=== PATIENT | female | born 1970 | race Caucasian/White ===

== ENCOUNTER 2019-11-22 08:42 | Inpatient (IN) ==
--- NOTE | 2019-11-06 16:27 | PAT Medication Instructions ---
Medication Instructions Date of Service November 06, 2019 Home Medications baclofen 10 mg PO BID buspirone 30 mg PO BID clonazepam [Klonopin] 0.5 mg PO UD desvenlafaxine succinate [Pristiq] 100 mg PO QPM diclofenac sodium 75 mg PO BID ergocalciferol (vitamin D2) 50,000 unit PO WK gabapentin 300 mg PO TID lactobacillus combination no.4 [Probiotic] 3,000 mmu cells PO DAILY metoprolol succinate 25 mg PO QPM multivitamin 1 tab PO QPM omega 5-syx-god-fish oil [Fish Oil] 1 cap PO DAILY pantoprazole 40 mg PO QAM turmeric 400 mg PO DAILY ASK your surgeon for instructions diclofenac sodium 75 mg PO BID STOP taking 2 weeks before surgery omega 4-jkj-ifg-fish oil [Fish Oil] 1 cap PO DAILY turmeric 400 mg PO DAILY DO NOT take the morning of surgery baclofen 10 mg PO BID ergocalciferol (vitamin D2) 50,000 unit PO WK lactobacillus combination no.4 [Probiotic] 3,000 mmu cells PO DAILY Take morning of surgery With a small sip of water, OTHERWISE NOTHING TO EAT OR DRINK AFTER MIDNIGHT: buspirone 30 mg PO BID clonazepam [Klonopin] 0.5 mg PO UD (if needed) desvenlafaxine succinate [Pristiq] 100 mg PO QPM gabapentin 300 mg PO TID pantoprazole 40 mg PO QAM Take evening before surgery baclofen 10 mg PO BID buspirone 30 mg PO BID clonazepam [Klonopin] 0.5 mg PO UD desvenlafaxine succinate [Pristiq] 100 mg PO QPM gabapentin 300 mg PO TID metoprolol succinate 25 mg PO QPM multivitamin 1 tab PO QPM Other Notes If you have any questions please call us at [phone] or [phone] or [phone] or [phone]
--- NOTE | 2019-11-08 10:43 | Anesthesiology Consultation ---
Date of Service November 08, 2019 Assessment & Plan (1) Encounter for pre-operative examination: CHECK TEST AM DOS Chart Review Chart Review: Acceptable Risk for Surgery and Patient seen in Pre Admission Testing Teaching & Discussion Instructed NPO after midnight before surgery, except medications with 15 cc of water. Medication instructions provided according to the PAT guidelines. History Surgery Operation Date: 11/22/19 07:45 Proposed Procedures p L3-L5 Decomperssion and Fusion, Spinal Cord Monitoring - Matthew Nava DO Height/Weight Height: 5 ft 6.5 in Weight: 87.6 kg Allergies Allergy/AdvReac Type Severity Reaction Status Date / Time morphine AdvReac VOMITING Verified 10/31/19 09:00 Medications Home Medications Medication Instructions Recorded Confirmed Last Taken baclofen 10 mg PO BID 10/31/19 10/31/19 Unknown buspirone 30 mg PO BID 10/31/19 10/31/19 Unknown clonazepam [Klonopin] 0.5 mg PO UD 10/31/19 10/31/19 Unknown desvenlafaxine succinate [Pristiq] 100 mg PO QPM 10/31/19 10/31/19 Unknown diclofenac sodium 75 mg PO BID 10/31/19 10/31/19 Unknown ergocalciferol (vitamin D2) 50,000 unit PO WK 10/31/19 10/31/19 Unknown [Vitamin D2] gabapentin 300 mg PO TID 10/31/19 10/31/19 Unknown lactobacillus combination no.4 3,000 mmu cells PO DAILY 10/31/19 10/31/19 Unknown [Probiotic] metoprolol succinate 25 mg PO QPM 10/31/19 10/31/19 Unknown multivitamin 1 tab PO QPM 10/31/19 10/31/19 Unknown omega 7-hsa-rzw-fish oil [Fish Oil] 1 cap PO DAILY 10/31/19 10/31/19 Unknown pantoprazole 40 mg PO QAM 10/31/19 10/31/19 Unknown turmeric 400 mg PO DAILY 10/31/19 10/31/19 Unknown Past Medical History Medical History Anxiety Degenerative disc disease Depression GERD (gastroesophageal reflux disease) Herniated intervertebral disc History of endometriosis Hypertension Osteoarthritis Spinal stenosis Exercise / Class Metabolic Activity II 4-5 Yardwork/Stairs/Walk up hill (Denies CP or SOB with 1 FOS) Past Surgical History Surgical History History of arthroscopy of right shoulder History of delivery History of cholecystectomy History of endometrial ablation History of tonsillectomy Hx of LASIK Past Anesthesia History No Hx of Anesthesia Complications and No Family Hx of Anesthesia Complications History of PONV No Hx of PONV and No Hx of Motion Sickness Social History Smoking Status: Former smoker tobacco type: cigarettes Do You Dip or Chew Tobacco: No Smoking End Date: QUIT 08/2019 Hx Alcohol Use: Yes alcohol intake frequency: holidays/special occasions only Hx Substance Use: No substance use type: does not use Review of Systems Pt denies any recent chest pain, shortness of breath, palpitations, cough, fever or URI. Physical Exam Vital Signs BP: 110/76 P: 67bpm SPO2: 97% RA T: 98.4 F R: 12 ENMT Mouth: + dental restorations (few caps on molars); no chipped teeth and no loose teeth Thyromental Distance: > or= 3.5 Finger Breadths (3.5) Mallampati Class: I Neck normal visual inspection; neck extension not limited Respiratory normal respiratory effort Auscultation: lungs clear to auscultation bilaterally Cardiovascular Rate/Rhythm: regular rate and regular rhythm Heart Sounds: no murmur Testing Laboratory Results 11/08/19 10:49 11/08/19 10:49 PT 10.0 Seconds (9.0-12.0) 11/08/19 10:49 INR 1.0 (0.9-1.1) 11/08/19 10:49 APTT 28.5 Seconds (21.0-31.0) 11/08/19 10:49 Urine Color Yellow 11/08/19 10:49 Urine Appearance Clear (Clear) 11/08/19 10:49 Urine pH 7.5 (4.5-7.5) 11/08/19 10:49 Ur Specific [place] 1.010 (1.000-1.030) 11/08/19 10:49 Urine Protein Negative (Negative) 11/08/19 10:49 Urine Glucose (UA) Negative (Negative) 11/08/19 10:49 Urine Ketones Negative (Negative) 11/08/19 10:49 Urine Nitrite Negative (Negative) 11/08/19 10:49 Ur Leukocyte Esterase Negative (Negative) 11/08/19 10:49 Blood Type O Positive 11/08/19 10:49 Antibody Screen NEGATIVE 11/08/19 10:49 Electrocardiogram Date: 02/26/19 Findings: + NSR @ (64bpm) Low voltage QRS, consider pulmonary disease, pericardial effusion, or normal variant. Cannot rule out anterior infarct, age undetermined. *Subsequent stress test as described below was done because of this abnormal EKG Stress Test Date: 03/15/19 Resting EF: 60-65% The stress echo is negative for inducible ischemia. No arrhythmias. Normal heart rate and BP response to dobutamine infusion. At rest, normal LV chamber size and wall thickness. Normal LV systolic function without regional wall motion abnormalities. Normal diastolic function. No significant valvular pathology.
[2019-11-08 12:19] LABS: BUN Creatinine Ratio 16.4 (10-20); Basophils # (auto) 0.04 K/uL (0-0.2); Basophils % (auto) 0.6 %; Calcium 9.7 mg/dl (8.5-10.1); Creatinine Clr Calc Pharmacy 85.1 ml/min; Eosinophils # (auto) 0.08 K/uL (0-0.5); Eosinophils % (auto) 1.3 %; Est GFR (African American) 86.5; Est GFR (Non-African American) 74.6; Hematocrit (blood only) 38.2 % (37-47); Hemoglobin 12.8 g/dL (12.0-16.0); Lymphocytes # (auto) 1.92 K/uL (1.2-3.4); Lymphocytes % (auto) 30.8 %; Mean Corpuscular Hemoglobin 30.9 pg (25-34); Mean Corpuscular Hgb Conc 33.5 g/dL (32-36); Mean Corpuscular Volume 92.3 fL (80-100); Mean Platelet Volume 9.8 fL (7.4-10.4); Monocytes # (auto) 0.37 K/uL (0.11-0.59); Monocytes % (auto) 5.9 %; Neutrophils # (auto) 3.83 K/uL (1.4-6.5); Neutrophils % (auto) 61.4 %; Platelet Count 263 K/uL (130-400); Potassium 4.5 mmol/L (3.5-5.1); RDW Coefficient of Variation 12.8 % (11.5-14.5); RDW Standard Deviation 43.3 fL (36.4-46.3); Red Blood Count 4.14 M/uL (4.2-5.4); White Blood Count 6.24 K/uL (4.8-10.8)
[2019-11-08 12:29] LABS: Appearance Urine Clear (Clear); Bilirubin Urine Negative (Negative); Blood Urine Negative (Negative); Color Urine Yellow; Glucose Urine UA Negative (Negative); Ketones Urine Negative (Negative); Leukocyte Esterase Urine Negative (Negative); Nitrite Urine Negative (Negative); Protein Urine Negative (Negative); Urobilinogen Urine Negative (Negative); pH Urine 7.5 (4.5-7.5)
[2019-11-08 12:36] LABS: Partial Thromboplastin Ratio 1.1; Partial Thromboplastin Time 28.5 Seconds (21.0-31.0)
--- NOTE | 2019-11-08 14:24 | XRay Report ---
XR chest Pre-admission PA/Lat CLINICAL HISTORY: pat preoperative COMPARISON STUDY: No previous studies for comparison. FINDINGS: The bones soft tissues and hemidiaphragms are normal. The cardiomediastinal silhouette is n ormal. The lungs are clear. The pulmonary vasculature is normal. IMPRESSION: Negative chest. The above report was generated using voice recognition software. It may contain grammatical, syntax or spelling errors. Electronically signed by: Jason Williamson M.D. 11/08/2019 2:22 PM
[~2019-11-22 08:42] MED LIST: ACETAMINOPHEN 500 MG TAB PO SCH; CEFAZOLIN 2000MG 2,000 MG/15 ML SYR IV SCH; CeleBREX 200 MG CAP PO SCH; GABAPENTIN 900 MG DOSE PO SCH; HYDROmorphone INJ 2 MG/ML SYR/VIAL ONE; LR 15ML/HR IV SCH; MIDAZOLAM HCL 1 MG/ML 2ML VIAL ONE; fentaNYL citrate 100 MCG/2 ML VIAL ONE
[2019-11-22] MEDS ORDERED: PHENYLEPHRINE 100MCG/ML 5ML SYR IV PRN (09:19)
[2019-11-22] MEDS ORDERED: ePHEDrine sulfate 50 MG/ML AMP IV PRN (09:19)
[2019-11-22] MEDS ORDERED: MEPERIDINE HCL 25 MG/ML CARP IV PRN (09:19)
[2019-11-22] MEDS ORDERED: ATROPINE SULFATE 0.1 MG/ML 10ML SYR IV PRN (09:19)
[2019-11-22] MEDS ORDERED: ONDANSETRON INJ 2 MG/ML 2 ML VIAL IV PRN ×2 (09:19→14:28)
[2019-11-22] MEDS ORDERED: LABETALOL HCL IV 5 MG/ML 20ML IV PRN (09:19)
--- NOTE | 2019-11-22 09:39 | History & Physical Bridge Note ---
Date of Service November 22, 2019 History & Physical Bridge Note I have examined the patient, reviewed the History & Physical and in the interval since the performance of the History & Physical I have noted the following changes of clinical significance: no changes noted
--- NOTE | 2019-11-22 09:40 | History & Physical Report ---
Date of Service November 22, 2019 Assessment & Plan (1) Spinal stenosis of lumbar region with radiculopathy: Decompression fusion L3-L5 Present on Admission?: Yes History of Present Illness Chief Complaint: Back and leg pain Primary Care Provider: Mally Yadav MD This is a 49-year-old female presents with chronic persistent back and leg pain. After failing extensive course of nonoperative care she is here for surgical invention. Allergies Allergy/AdvReac Type Severity Reaction Status Date / Time morphine AdvReac VOMITING Verified 11/22/19 09:07 Home Medications Home Medications Medication Instructions Recorded Confirmed Type baclofen 10 mg PO BID 10/31/19 11/22/19 History buspirone 30 mg PO BID 10/31/19 11/22/19 History clonazepam [Klonopin] 0.5 mg PO UD 10/31/19 11/22/19 History desvenlafaxine succinate [Pristiq] 100 mg PO QPM 10/31/19 11/22/19 History diclofenac sodium 75 mg PO BID 10/31/19 11/22/19 History ergocalciferol (vitamin D2) 50,000 unit PO WK 10/31/19 11/22/19 History [Vitamin D2] gabapentin 300 mg PO TID 10/31/19 11/22/19 History lactobacillus combination no.4 3,000 mmu cells PO DAILY 10/31/19 11/22/19 History [Probiotic] metoprolol succinate 25 mg PO QPM 10/31/19 11/22/19 History multivitamin 1 tab PO QPM 10/31/19 11/22/19 History omega 9-xbl-ufj-fish oil [Fish Oil] 1 cap PO DAILY 10/31/19 11/22/19 History pantoprazole 40 mg PO QAM 10/31/19 11/22/19 History turmeric 400 mg PO DAILY 10/31/19 11/22/19 History Past Med/Surg History Medical History Anxiety Degenerative disc disease Depression GERD (gastroesophageal reflux disease) Herniated intervertebral disc History of endometriosis Hypertension Osteoarthritis Spinal stenosis Surgical History History of arthroscopy of right shoulder History of delivery History of cholecystectomy History of endometrial ablation History of tonsillectomy Hx of LASIK Social History Preferred Language: Italian Communication Ability: Effective Urban And Regional Planner Required: No Beliefs That Will Affect Care: None Current Living Situation: Significant Other Other Information That Helps Us Care for You: No Feels Safe at Home: Yes Safety Concerns: Feels Safe At This Time Smoking Status: Former smoker Tobacco Type: cigarettes ; Do You Dip or Chew Tobacco: No ; Smoking End Date: QUIT 08/2019 ; Second Hand Exposure: No ; Tobacco Cessation Education Requested by Patient: No Hx Alcohol Use: Yes Hx Substance Use: No Physical Exam Physical Exam: Patient is alert and oriented neurologically intact. Results & Data Vital Signs (Past 12 Hours) Vital Signs Temp Pulse Resp BP Pulse Ox 11/22/19 09:01 36.9 C 68 16 125/97 100
[2019-11-22] MEDS ORDERED: SCOPOLAMINE 1.5 MG TDSY ONE (09:47)
[2019-11-22] MEDS ORDERED: BACITRACIN INJ 50,000 UNIT VIAL ONE (10:09)
[2019-11-22] MEDS ORDERED: BUPIVACAINE/EPINEPHRINE 0.25% 1:200,000 30 ML VIAL ONE (10:10)
[2019-11-22] MEDS ORDERED: SCOPOLAMINE 1.5 MG TDSY TD ONE (10:13)
[2019-11-22] MEDS ORDERED: HYDROmorphone INJ 2 MG/ML SYR/VIAL ONE (10:18)
[2019-11-22] MEDS ORDERED: fentaNYL citrate 100 MCG/2 ML VIAL ONE ×4 (10:51→12:30)
[2019-11-22] MEDS ORDERED: DEXAMETHASONE SOD INJ 4 MG/ML VIAL ONE (10:58)
[2019-11-22] MEDS ORDERED: LARYING-O-JET KIT (LTA) ONE (10:58)
[2019-11-22] MEDS ORDERED: LIDOCAINE HCL 2% 2 ML VIAL/AMP(20MG/ML) INFIL ONE (10:58)
[2019-11-22] MEDS ORDERED: ROCURONIUM BROMIDE 10 MG/ML 5 ML VIAL ONE (10:58)
[2019-11-22] MEDS ORDERED: PROPOFOL IV EMULSION 10 MG/ML 20 ML VIAL IV ONE (10:58)
[2019-11-22] MEDS ORDERED: ePHEDrine sulfate 50 MG/ML SYR ONE ×2 (10:58→12:30)
[2019-11-22] MEDS ORDERED: GLYCOPYRROLATE 0.2 MG/ML VIAL ONE (10:58)
[2019-11-22] MEDS ORDERED: NEOSTIGMINE METHYLSULFATE 1 MG/ML 10ML VIAL ONE (10:58)
[2019-11-22] MEDS ORDERED: ONDANSETRON INJ 2 MG/ML 2 ML VIAL ONE (10:58)
[2019-11-22] MEDS ORDERED: ePHEDrine sulfate 50 MG/ML AMP ONE (12:30)
[2019-11-22] MEDS ORDERED: KETOROLAC 30 MG/ML VIAL ONE (12:30)
--- NOTE | 2019-11-22 12:32 | Operative Report ---
Post Operative Report Pre & Post Diagnosis Operation Date: 11/22/19 10:35 Pre-Op Diagnosis: Lumbar spinal stenosis with radiculopathy Post-Op Diagnosis: Same I identified the patient and participated in the time-out.: Yes Procedure Operation Date: 11/22/19 10:35 Actual Procedures #1 lumbar decompression with bilateral medial facetectomies foraminotomies L3-4 L4-5. #2 posterior spinal fusion L3-4 L4-5. #3 placement posterior instrumentation L3-4 L4-5 per #4 interbody fusion L3-4 L4-5 per #5 placed a peek cage 12 x 22 mm at L3-4 and L4-5. #6 placement of locally harvested morselized autograft in the posterior lateral gutters. #7 placement infuse collagen sponge combined master graft in the posterior lateral gutters and ostial amp and interbody space. Surgeon Matthew Nava, Supervisor Beater Room Chuck Villarreal Estimated Blood Loss 175 Findings Consistent with Post-Op Diagnosis Specimens None Indications This is a 49-year-old female the presents above-mentioned diagnosis after failing extensive course of nonoperative care is here for surgical invention. Description of Procedure Patient was met with identified informed consent obtained. Patient was then taken to the operative suite underwent intubation placed in a prone position the Boris table on top of the Alcon frame. All bony prominences well-padded eyes inspected to ensure no external pressure placed upon the peer at this point the lumbar spine is prepped and draped in a sterile fashion. Sharp dissection with the assistance of Bovie cautery was performed down to and exposing the lamina transverse processes of L3 L4-5 bilaterally. From caudal cephalad fashion complete laminectomy of L4 and L3 is performed including bilateral medial facetectomies and foraminotomies addressing severe stenosis as well as a large herniated disc in the right neural foramen. After complete decompression pedicle screws were placed in L3-L4-L5 bilaterally with assistance of fluoroscopy the process purinma placed. By way of a transforaminal portion right complete discectomy of L5-S1 is performed endplates curetted to subcortical bleeding bone and a 12 x 22 mm peek cage filled with osteo-amp bone graft tapped into position. Then proceeded to L3-[address] of a transforaminal approach in the right complete discectomy was performed endplates curetted to subcortical bleeding bone and a 12 x 22 mm peek cage filled with osteo-bone graft tapped in position. The rods were then compressed locked into final pos ition bilaterally. The transverse processes of L3-L4-L5 bur to subcortical bleeding bone. Infuse collagen sponge master graft and local autograft was then placed in the posterior gutters. 15 round CATALINA drain inserted. The incision was then closed with 1 Vicryl in the fascia 2-0 Vicryl subcutaneously and 4 Monocryl for final skin closure. Steri-Strip sterile dressings placed. Patient will continue to PACU stable condition. Please note Chuck Villarreal present at the entire procedure involved the patient positioning complex portions of the surgery and final skin closure. Lastly spinal cord monitoring was utilized that the procedure no changes noted. I attest to the content of the Intraoperative Record and any orders documented therein. Any exceptions are noted below.
[2019-11-22] MEDS ORDERED: FLOSEAL HEMOSTATIC MATRIX 10ML TOP ONE (12:39)
[2019-11-22] MEDS ORDERED: ESMOLOL HCL INJ 10 MG/ML 10ML VIAL IV ONE (12:42)
[2019-11-22] MEDS: fentaNYL citrate 100 MCG/2 ML VIAL IV PRN ×4 (13:05→13:20)
--- NOTE | 2019-11-22 13:07 | Fluoroscopy Report ---
INTRAOPERATIVE RADIOGRAPHS CLINICAL HISTORY: L3-L5 spinal fusion. Fluoroscopy time: 18 seconds. FINDINGS: 2 spot fluoroscopic views of the lumbar spine are presented. There has been discectomy at L 3-L4 and L4-L5 laminectomy and posterior fusion from L3 -L5. Interpedicular screws are present at all levels. Orthopedic hardware appears intact. IMPRESSION: Intraoperative images from L3-L5 spinal fusion as above. Electronically signed by: Jesus Alberto Maxwell M.D. 11/22/2019 1:06 PM
[2019-11-22] MEDS: HYDROmorphone INJ 1 MG/ML SYRINGE IV PRN ×5 (13:25→13:46)
[2019-11-22] MEDS ORDERED: METOPROLOL TARTRATE 1 MG/ML VIAL IV STA (13:40)
[2019-11-22] MEDS ORDERED: METOPROLOL TARTRATE 1 MG/ML VIAL IV ONE (13:42)
--- NOTE | 2019-11-22 13:54 | Anesthesiology Progress Note ---
Date of Service November 22, 2019 Anesthesia Post Procedure Vital Signs Vital Signs: Temp Pulse Pulse Pulse Resp BP BP 11/22/19 13:45 100 H 147/76 H 11/22/19 13:35 98 H 16 142/79 H 11/22/19 13:25 97 H 14 144/80 H 11/22/19 13:15 95 H 12 149/78 H 11/22/19 13:05 95 H 12 149/87 H 11/22/19 12:59 36.6 C 83 14 115/71 11/22/19 09:01 36.9 C 68 16 125/97 Pulse Ox 11/22/19 13:45 11/22/19 13:35 99 11/22/19 13:25 98 11/22/19 13:15 100 11/22/19 13:05 98 11/22/19 12:59 99 11/22/19 09:01 100 Pain Intensity Back: Pain Intensity: 3 Transfer of Care Handoff Completed per policy Notes Mental Status: alert / awake / arousable Patient Amnestic to Procedure: Yes Nausea / Vomiting: adequately controlled Pain: adequately controlled Airway Patency, RR, SpO2: stable & adequate BP & HR: stable & adequate Hydration State: stable & adequate Anesthetic Complications: no major complications apparent and Pt Satisfied with anesthetic care
[2019-11-22] MEDS ORDERED: FAMOTIDINE 20 MG TAB PO PRN (14:28)
[2019-11-22] MEDS ORDERED: SOD PHOSPHATE/SOD BIPHOSPHATE ENEMA 132 ML BTL PR PRN (14:28)
[2019-11-22] MEDS ORDERED: ONDANSETRON 4 MG OD TAB PO PRN (14:28)
[2019-11-22] MEDS ORDERED: DO NOT ADMINISTER PNEUMOCOCCAL VACCINE PRN (14:28)
[2019-11-22] MEDS ORDERED: HYDROmorphone INJ 1 MG/ML SYRINGE IV PRN (14:28)
[2019-11-22] MEDS ORDERED: DO NOT ADMINISTER FLU VACCINE PRN (14:28)
[2019-11-22] MEDS ORDERED: PROMETHAZINE HCL 12.5 MG in SODIUM CHLORIDE 0.9% 50 ML IV PRN (14:28)
[2019-11-22] MEDS ORDERED: bisacodyL 10 MG SUPP PR PRN (14:28)
[2019-11-22] MEDS ORDERED: LORazepam 0.5 MG TAB PO PRN (14:28)
[2019-11-22] MEDS ORDERED: ALUMINUM/MAGNESIUM SUSP 30 ML UDC PO PRN (14:28)
[2019-11-22] MEDS ORDERED: LORazepam 0.5 MG/1 ML VIAL IV PRN (14:28)
[2019-11-22] MEDS ORDERED: METOCLOPRAMIDE HCL INJ 5 MG/ML 2 ML VIAL IV PRN (14:28)
[2019-11-22] MEDS ORDERED: ACETAMINOPHEN 1,000 MG/100 ML VIAL IV PRN (14:28)
[2019-11-22] MEDS ORDERED: NALOXONE HCL 0.4 MG/1 ML VIAL/CARP IV PRN (14:28)
[2019-11-22] MEDS: KETOROLAC 30 MG/ML VIAL IV SCH ×2 (14:56→19:46)
[2019-11-22] MEDS: LACTATED RINGER'S 1,000 ML IV SCH ×2 (14:57→21:30)
[2019-11-22] MEDS: HYDROmorphone INJ 0.5 MG/0.5 ML SYR IV PRN (15:35)
[2019-11-22] MEDS: GABAPENTIN 300 MG CAP PO SCH ×2 (15:40→20:59)
[2019-11-22] MEDS ORDERED: CHECK SCOPOLAMINE PATCH PLACEMENT SCH (16:00)
[2019-11-22] MEDS: OXYCODONE HCL IR 5 MG TAB (IMMEDIATE RELEASE) PO PRN ×2 (17:45→21:30)
[2019-11-22] MEDS: CEFAZOLIN 2000MG 2,000 MG/15 ML SYR IV SCH (19:13)
[2019-11-22] MEDS: MULTIVITAMIN TAB PO SCH (20:58)
[2019-11-22] MEDS: BACLOFEN 10 MG TAB PO SCH (20:58)
[2019-11-22] MEDS: clonazePAM 0.5 MG TAB PO SCH (20:58)
[2019-11-22] MEDS: BusPIRone 15 MG TAB PO SCH (20:58)
[2019-11-22] MEDS: DOCUSATE SODIUM/SENNA 50/8.6MG TAB PO SCH (20:59)
[2019-11-22] MEDS: METOPROLOL SUCC 25MG EXT REL TAB PO SCH (20:59)
[2019-11-23] MEDS: KETOROLAC 30 MG/ML VIAL IV SCH ×2 (00:17→05:37)
[2019-11-23] MEDS: CEFAZOLIN 2000MG 2,000 MG/15 ML SYR IV SCH (01:48)
[2019-11-23] MEDS: OXYCODONE HCL IR 5 MG TAB (IMMEDIATE RELEASE) PO PRN ×4 (04:25→18:19)
[2019-11-23] MEDS: LACTATED RINGER'S 1,000 ML IV SCH (04:29)
[2019-11-23 05:23] LABS: Basophils # (auto) 0.01 K/uL (0-0.2); Basophils % (auto) 0.1 %; Hematocrit (blood only) 29.9 % (37-47); Immature Granulocytes # (auto) 0.02 K/uL (0.00-0.02); Immature Granulocytes % (auto) 0.2 %; Lymphocytes # (auto) 1.42 K/uL (1.2-3.4); Lymphocytes % (auto) 15.1 %; Mean Corpuscular Hemoglobin 30.5 pg (25-34); Mean Corpuscular Hgb Conc 33.4 g/dL (32-36); Mean Corpuscular Volume 91.2 fL (80-100); Mean Platelet Volume 8.9 fL (7.4-10.4); Monocytes # (auto) 0.58 K/uL (0.11-0.59); Monocytes % (auto) 6.2 %; Neutrophils # (auto) 7.39 K/uL (1.4-6.5); Neutrophils % (auto) 78.4 %; Platelet Count 200 K/uL (130-400); RDW Coefficient of Variation 13.1 % (11.5-14.5); RDW Standard Deviation 43.6 fL (36.4-46.3); Red Blood Count 3.28 M/uL (4.2-5.4); White Blood Count 9.42 K/uL (4.8-10.8)
[2019-11-23] MEDS: POLYETHYLENE (MIRALAX) 17 GM PACK PO SCH ×3 (05:37→18:14)
[2019-11-23 05:49] LABS: Calcium 8.6 mg/dl (8.5-10.1); Creatinine Clr Calc Pharmacy 93.9 ml/min; Est GFR (African American) 98.1; Est GFR (Non-African American) 84.6; Potassium 4.1 mmol/L (3.5-5.1)
[2019-11-23] MEDS: clonazePAM 0.5 MG TAB PO SCH ×2 (09:01→21:04)
[2019-11-23] MEDS: BusPIRone 15 MG TAB PO SCH ×2 (09:02→21:04)
[2019-11-23] MEDS: BACLOFEN 10 MG TAB PO SCH ×2 (09:02→21:04)
[2019-11-23] MEDS: PANTOprazole 40 MG TAB PO SCH (09:03)
[2019-11-23] MEDS: GABAPENTIN 300 MG CAP PO SCH ×3 (09:03→21:05)
[2019-11-23] MEDS: LACTOBACILLUS ACIDOPHILUS (FLORANEX) TAB PO SCH (09:03)
--- NOTE | 2019-11-23 10:17 | Orthopedic Progress Note ---
Date of Service November 23, 2019 Assessment & Plan (1) Spinal stenosis of lumbar region with radiculopathy: This time continue physical therapy monitor CATALINA output hopefully discharge home the next few days. Present on Admission?: Yes Subjective Back pain controlled leg symptoms markedly improved. Physical Exam Physical Exam: Patient is good strength testing is ambulating the halls. Results & Data Vital Signs (Past 12 Hours) Vital Signs Temp Pulse Pulse Resp BP Pulse Ox 11/23/19 07:14 36.8 C 81 18 100/63 97 11/23/19 03:55 36.7 C 83 16 93/55 L 95 11/22/19 23:20 36.8 C 83 16 93/56 L 95
[2019-11-23] MEDS: TRAMADOL HCL 50 MG TABLET PO PRN ×3 (10:59→21:05)
[2019-11-23] MEDS: HYDROmorphone INJ 0.5 MG/0.5 ML SYR IV PRN ×2 (11:46→15:15)
[2019-11-23] MEDS ORDERED: Nursing to Pharmacy Communication ONE (16:01)
[2019-11-23] MEDS: DESVENLAFAXINE SUCCINATE 100 MG PO SCH (16:58)
[2019-11-23] MEDS: DOCUSATE SODIUM/SENNA 50/8.6MG TAB PO SCH (16:59)
[2019-11-23] MEDS: MAGNESIUM HYDROXIDE SUSP 30 ML UDC PO PRN (17:01)
--- NOTE | 2019-11-23 19:05 | Anesthesiology Progress Note ---
Date of Service November 23, 2019 Anesthesia Post Procedure Vital Signs Vital Signs: Temp Pulse Pulse Resp BP Pulse Ox 11/23/19 15:42 37.5 C 98 H 16 104/69 94 11/23/19 07:14 36.8 C 81 18 100/63 97 11/23/19 03:55 36.7 C 83 16 93/55 L 95 11/22/19 23:20 36.8 C 83 16 93/56 L 95 11/22/19 19:11 36.7 C 83 17 104/69 93 Pain Intensity Back: Pain Intensity: 7 Notes Mental Status: alert / awake / arousable and participated in evaluation Patient Amnestic to Procedure: Yes Nausea / Vomiting: adequately controlled Pain: adequately controlled Airway Patency, RR, SpO2: stable & adequate BP & HR: stable & adequate Hydration State: stable & adequate Anesthetic Complications: no major complications apparent and Pt Satisfied with anesthetic care
[2019-11-23] MEDS: ACETAMINOPHEN 500 MG TAB PO PRN (21:04)
[2019-11-23] MEDS: METOPROLOL SUCC 25MG EXT REL TAB PO SCH (21:05)
[2019-11-23] MEDS: MULTIVITAMIN TAB PO SCH (21:05)
[2019-11-24] MEDS: POLYETHYLENE (MIRALAX) 17 GM PACK PO SCH ×4 (00:35→15:52)
[2019-11-24] MEDS: TRAMADOL HCL 50 MG TABLET PO PRN ×6 (01:02→22:35)
[2019-11-24] MEDS: ACETAMINOPHEN 500 MG TAB PO PRN ×2 (07:10→15:50)
[2019-11-24] MEDS: OXYCODONE HCL IR 5 MG TAB (IMMEDIATE RELEASE) PO PRN ×2 (07:10→15:51)
[2019-11-24] MEDS: BusPIRone 15 MG TAB PO SCH ×2 (07:51→21:31)
[2019-11-24] MEDS: clonazePAM 0.5 MG TAB PO SCH ×2 (07:51→21:31)
[2019-11-24] MEDS: GABAPENTIN 300 MG CAP PO SCH ×3 (07:51→21:31)
[2019-11-24] MEDS: PANTOprazole 40 MG TAB PO SCH (07:52)
[2019-11-24] MEDS: BACLOFEN 10 MG TAB PO SCH ×2 (07:52→21:31)
[2019-11-24] MEDS: LACTOBACILLUS ACIDOPHILUS (FLORANEX) TAB PO SCH (07:52)
[2019-11-24] MEDS: MAGNESIUM HYDROXIDE SUSP 30 ML UDC PO PRN (07:56)
[2019-11-24] MEDS ORDERED: DESVENLAFAXINE SUCCINATE 100 MG PO SCH (09:00)
--- NOTE | 2019-11-24 10:02 | Orthopedic Progress Note ---
Date of Service November 24, 2019 Assessment & Plan (1) Spinal stenosis of lumbar region with radiculopathy: This time we will continue physical therapy monitor her CATALINA output and advance her bowel regimen. I will give her a small dose of Decadron today with help her muscle soreness. Present on Admission?: Yes Subjective Patient struggling with increased back pain today. Again leg symptoms markedly improved. Physical Exam Physical Exam: Patient is good strength testing appears comfortable. Results & Data Vital Signs (Past 12 Hours) Vital Signs Temp Pulse Resp BP Pulse Ox 11/24/19 06:36 37.1 C 11/24/19 06:34 38.2 C H 88 16 95/61 L 92 11/24/19 00:19 37.6 C H 97 H 16 111/68 92
[2019-11-24] MEDS ORDERED: DEXAMETHASONE SOD PHOSPHATE 8 MG in SYRINGE 0 ML IV STA (10:05)
[2019-11-24] MEDS: DOCUSATE SODIUM/SENNA 50/8.6MG TAB PO SCH (15:52)
[2019-11-24] MEDS: DESVENLAFAXINE SUCCINATE 100 MG PO SCH (15:52)
[2019-11-24] MEDS: MULTIVITAMIN TAB PO SCH (21:31)
[2019-11-24] MEDS: METOPROLOL SUCC 25MG EXT REL TAB PO SCH (21:34)
[2019-11-25] MEDS: POLYETHYLENE (MIRALAX) 17 GM PACK PO SCH ×2 (00:27→05:52)
[2019-11-25] MEDS: OXYCODONE HCL IR 5 MG TAB (IMMEDIATE RELEASE) PO PRN ×5 (02:30→23:17)
[2019-11-25] MEDS: TRAMADOL HCL 50 MG TABLET PO PRN ×4 (05:55→21:19)
[2019-11-25] MEDS: BACLOFEN 10 MG TAB PO SCH ×2 (07:41→21:19)
[2019-11-25] MEDS: BusPIRone 15 MG TAB PO SCH ×2 (07:41→21:18)
[2019-11-25] MEDS: LACTOBACILLUS ACIDOPHILUS (FLORANEX) TAB PO SCH (07:41)
[2019-11-25] MEDS: GABAPENTIN 300 MG CAP PO SCH ×3 (07:42→21:19)
[2019-11-25] MEDS: clonazePAM 0.5 MG TAB PO SCH ×2 (07:42→21:19)
[2019-11-25] MEDS: PANTOprazole 40 MG TAB PO SCH (07:43)
--- NOTE | 2019-11-25 09:52 | Orthopedic Progress Note ---
Date of Service November 25, 2019 Assessment & Plan (1) Spinal stenosis of lumbar region with radiculopathy: This time we will continue physical therapy run a short course of Decadron hopefully discharge home tomorrow. Present on Admission?: Yes Subjective Patient is complaining of some recurrence of right leg pain. She is however ambulating well tolerating steps. Physical Exam Physical Exam: On exam she has good strength testing but does appear uncomfortable this morning. Results & Data Vital Signs (Past 12 Hours) Vital Signs Temp Pulse Resp BP Pulse Ox 11/25/19 05:45 36.8 C 74 16 92/60 L 93 11/24/19 23:16 36.7 C 62 16 139/81 95
[2019-11-25] MEDS: DEXAMETHASONE SOD PHOSPHATE 8 MG in SYRINGE 0 ML IV SCH ×3 (13:35→21:19)
[2019-11-25] MEDS: DESVENLAFAXINE SUCCINATE 100 MG PO SCH (16:43)
[2019-11-25] MEDS: MULTIVITAMIN TAB PO SCH (21:18)
[2019-11-25] MEDS: METOPROLOL SUCC 25MG EXT REL TAB PO SCH (21:18)
[2019-11-25] MEDS: DOCUSATE SODIUM/SENNA 50/8.6MG TAB PO SCH (21:20)
[2019-11-26] MEDS: TRAMADOL HCL 50 MG TABLET PO PRN ×2 (02:31→07:46)
[2019-11-26] MEDS: OXYCODONE HCL IR 5 MG TAB (IMMEDIATE RELEASE) PO PRN ×3 (05:23→14:12)
[2019-11-26] MEDS: DEXAMETHASONE SOD PHOSPHATE 8 MG in SYRINGE 0 ML IV SCH ×2 (05:23→14:13)
[2019-11-26] MEDS: GABAPENTIN 300 MG CAP PO SCH ×2 (08:32→14:13)
[2019-11-26] MEDS: BACLOFEN 10 MG TAB PO SCH (08:33)
[2019-11-26] MEDS: BusPIRone 15 MG TAB PO SCH (08:33)
[2019-11-26] MEDS: clonazePAM 0.5 MG TAB PO SCH (08:33)
[2019-11-26] MEDS: PANTOprazole 40 MG TAB PO SCH (08:33)
[2019-11-26] MEDS: LACTOBACILLUS ACIDOPHILUS (FLORANEX) TAB PO SCH (08:34)
--- NOTE | 2019-11-26 13:34 | Discharge Summary ---
Date of Service November 26, 2019 Admission HPI Per Admitting Provider This is a 49-year-old female presents with chronic persistent back and leg pain. After failing extensive course of nonoperative care she is here for surgical invention. Principal Diagnosis Lumbar spinal stenosis with radiculopathy Discharge Data Allergies Allergy/AdvReac Type Severity Reaction Status Date / Time morphine AdvReac VOMITING Verified 11/22/19 09:07 Consultations 11/22/19 14:28 Consult Case Management - Discharge Planning Routine Procedures Performed Operation Date: 11/22/19 10:35 Actual Procedures p L3-L5 Decompression and Fusion, Spinal Cord Monitoring(Not Applicable) - Matthew Nava DO Ordered Studies 11/22/19 07:00 FL fluoroscopy <1hr Routine FL lumbar spine 2-3V Routine Hospital Course (1) Spinal stenosis of lumbar region with radiculopathy: Patient underwent lumbar decompression fusion troll as well as taken orthopedic for possibly. Postop day and when she began physical therapy progressed nicely postop day #2 and 3 leg symptoms steadily improving. CATALINA drain decreasing probably. Pain well controlled. Neurologically intact. Subsequently discharged home. Discharge orders instructions from the chart for further review. Total Time Total Time Spent Total Time Spent (In Minutes): 20 minutes Discharge Plan Discharge Items Patient Disposition: Home - Self-Care Reason For Visit: LUMBAR SPINAL STENOSIS WO NEUROGENIC CLAUDICATION Discharge Diagnosis: Lumbar spinal stenosis with neurogenic claudication Activity: Per Instructions section Non-emergency contact: Primary Care Provider Call non-emergency contact if: you have any medication questions Follow-up/Referrals: Mally Yadav MD [Primary Care Provider] - Diet: Regular Addtl Attending Provider Instructions: ACTIVITY RECOMMENDATIONS: SELF CARE INSTRUCTIONS AFTER THORACIC/LUMBAR FUSIONS 1. You may walk to your tolerance. It is good exercise for your legs and back. Expect some back and intermittent leg aches and pains. 2. You may perform "counter-top" level activities (make a sandwich, andrew with a project, etc.). 3. No bending or lifting of more than 10 pounds or back twisting of any nature (roll like a log when turning in bed). 4. You may ride in a car for 20-30 minutes at a time. No driving until after your first visit with your doctor. 5. Frequent changes of position and restricting sitting to 30 minutes at a time will help limit the amount of back spasms and stiffness you may experience. 6. You may discontinue the use of ambulatory aids (cane, crutches, etc.) once your strength and confidence allow. 7. You may infrastructure project manager the shower and let water strike your incision when you arrive home at least once daily. Do not take a tub bath, sit in a hot tub or go into a swimming pool until after your first recheck in the office. SPECIAL CARE INSTRUCTIONS: VERY IMPORTANT TO READ AND REVIEW A. Your surgical incision has been closed with a cosmetic suture under the skin that will dissolve in about 6 weeks. In 14 days, you can use a pair of clean scissors and cut the suture that is left outside of the skin at the ends of your incision. 1. The small skin tapes can be removed 7 days after surgery if they have not fallen off by that point. 2. You may keep the wound open to air as much as possible to promote healing after post-op day number 5 unless told otherwise by your doctor. 3. If you think the wound looks like it is becoming infected (redness or worsening drainage) and/or you are experiencing fever, chill or worsening back pain and muscle spasms, contact the office so that we may evaluate you as soon as possible. B. Complications are uncommon, but please contact us if you have any signs or symptoms of: 1. wound infection (fever higher than 102.5 degrees F, redness, separation of wound, drainage, or increasing pain from the incision) 2. blood clots in legs (pain, swelling, redness and warmth in legs) 3. urinary tract infection (fever higher than 102.5 degrees F, burning upon urination or increased frequency of urination) 4. nerve problems (inability to walk on your toes or heels, numbness, loss of bowel or bladder control) 5. any other symptoms that concern you C. Please call the office at if you have any concerns or questions about your operation or recovery. D. No smoking! Smoking drastically decreases the chance of a solid fusion. E. Do not take any anti-inflammatory medications (Indocin, Advil, Motrin, Aspirin, Naprosyn, etc.) as these may inhibit the chance of a solid fusion. Tylenol is okay to take for pain. MANAGING PAIN AFTER SPINAL SURGERY 1. Narcotic medication is intended for short-term use and will be provided for surgical pain. Surgical pain usually lasts for a period of 4-6 weeks. Narcotic medication includes Percocet, Vicodin, Darvocet, Tylenol #3 or Lortab. 2. Longer-term pain is more appropriately treated with non-narcotic medication such as Tylenol ES. 3. Muscle spasm is not appropriately treated with narcotics. Muscle relaxers such as Soma, Flexeril or Skelaxin can be used along with Tylenol ES. 4. Remember that we all live with some "aches and pains". This is not unusual or uncommon after an injury or as we get older. a. Back pain is expected and may include muscle spasms for 4 to 6 weeks after surgery. The pain should gradually improve. If the pain worsens for no apparent reason, please contact the office. b. Intermittent leg pain may also be experienced and should not be concerned about unless it worsens for no apparent reason. If so, please contact the office. 5. We will provide appropriate medication within the normal guidelines of their prescribed use. We will also be very cautious and aware of potential abuse and extended duration of patients' medication needs. a. Pain medications are for your comfort and to assist with sleep and rest so that the tissue can heal. They are not provided in order to return to normal activity and should not be used through the day. To do so or worsening pain at night can result from ongoing tissue damage and development of tolerance to the prescribed medicine. 6. Please allow 2-3 days to process refills. Prescriptions will not be mailed but must be picked up at the office. FOLLOW UP VISIT: Keep your scheduled follow-up appointment. Any questions, please call the office at . Pending Studies at Discharge: No Stand-Alone Forms: [facility], Smoking Cessation Medications and DC Order Prescriptions: New oxycodone 5 mg tablet 5 mg PO Q6H PRN (Reason: pain, severe) Qty: 30 RF: 0 tramadol 50 mg tablet 50 mg PO Q6H PRN (Reason: pain, moderate) Qty: 30 RF: 0 gabapentin [Neurontin] 600 mg tablet 600 mg PO TID Qty: 90 RF: 1 methylprednisolone [Medrol (Pankaj)] 4 mg tablets,dose pack 4 mg PO DIRECTED 7 Days Qty: 7 RF: 0 Continued multivitamin Tablet 1 tab PO QPM RF: 0 clonazepam [Klonopin] 0.5 mg Tablet 0.5 mg PO UD RF: 0 baclofen 10 mg Tablet 10 mg PO BID RF: 0 pantoprazole 40 mg Tablet,Delayed Release (Dr/Ec) 40 mg PO QAM RF: 0 buspirone 30 mg Tablet 30 mg PO BID RF: 0 gabapentin 300 mg Capsule 300 mg PO TID RF: 0 metoprolol succinate 25 mg Tablet Extended Release 24 Hr 25 mg PO QPM RF: 0 ergocalciferol (vitamin D2) [Vitamin D2] 50,000 unit Capsule 50,000 unit PO WK RF: 0 desvenlafaxine succinate [Pristiq] 100 mg Tablet Extended Release 24 Hr 100 mg PO QPM RF: 0 omega [id number]-mvu-fish oil [Fish Oil] 1,000 mg (120 mg-180 mg) Capsule 1 cap PO DAILY RF: 0 Probiotic 3 billion cell Capsule 3,000 mmu cells PO DAILY RF: 0 turmeric 400 mg Capsule 400 mg PO DAILY RF: 0 Discontinued diclofenac sodium 75 mg Tablet,Delayed Release (Dr/Ec) 75 mg PO BID RF: 0 Discharge Orders: Discharge Order (Routine); Ordered 11/26/19 Ordered By: Matthew Nava Admission Data Admit Date/Time: 11/22/19 13:04 Attending Provider: Matthew Nava Admit Provider: Matthew Nava Primary Care Provider: Mally Yadav
== END 2019-11-26 16:35 | disposition home or self-care (01) | DRG 455 ==
LOC: ASU 08:42 → 3E 13:04